=== PATIENT | female | born 1970 | race Caucasian/White ===

== ENCOUNTER 2021-03-27 12:33 | Emergency (ER) | payer OTHER ==
[~2021-03-27] VITALS: Ht 162.6 cm; Wt 82.0 kg
[2021-03-27] MEDS ORDERED: ONDANSETRON HCL 4MG/2ML INJ IV STA (13:26)
[2021-03-27] MEDS ORDERED: LACTATED RINGERS 1,000 ML IV SCH (13:45)
[2021-03-27 14:48] LABS: BASOPHILS % 0.7 % (0.0-2.0); EOSINOPHILS % 1.8 % (0.0-5.0); HEMOGLOBIN. 14.4 g/dL (12.0-16.0); LYMPHOCYTES % 29.8 % (20.0-50.0); MEAN CORPUSCULAR HEMOGLOBIN 29.5 pg (28.0-32.0); MEAN CORPUSCULAR VOLUME 88.3 fL (81.0-99.0); MEAN PLATELET VOLUME 8.9 fl (7.4-10.4); MONOCYTES % 4.7 % (2.0-8.0); PLATELET 254 x1000/uL (130-400); RED BLOOD CELL COUNT 4.87 mill/uL (4.2-5.4); RED CELL DISTRIBUTION WIDTH 13.3 % (11.6-14.6)
[2021-03-27 14:54] LABS: HCG SCREEN NEGATIVE
[2021-03-27 14:56] LABS: CHLORIDE 102 mEq/L (98-107)
[2021-03-27 15:02] LABS: PHOSPHORUS 2.7 mg/dL (2.5-4.9)
[2021-03-27 15:04] LABS: BETA HYDROXYBUTYRATE 0.1 mMol/L (0.0-0.3)
[2021-03-27 17:29] VITALS: BP 109/77
== END 2021-03-27 19:21 | disposition home or self-care (01) ==
LOC: ER 12:33
DX: R07.9 Chest pain, unspecified (principal); E11.65 Type 2 diabetes mellitus with hyperglycemia; F41.9 Anxiety disorder, unspecified; F32.9 Major depressive disorder, single episode, unspecified; Z98.890 Other specified postprocedural states
CPT/HCPCS: 36415; 71045; 80053; 82010; 82962; 83605; 83735; 83880; 84100; 84484; 84703; 85025; 93005; 96361; 96374; 99285; J2405; Z7610